=== PATIENT | female | born 1995 | race American Indian/Alaskan Native ===

== ENCOUNTER 2017-09-19 12:33 | Emergency (ER) | payer OTHER ==
[2017-09-19 13:29] LABS: Urine Blood TRACE (NEG); Urine Glucose NEGATIVE (NEG); Urine Protein NEGATIVE (NEG); Urine pH 5.5 (5.0-7.0)
[2017-09-19] MEDS ORDERED: DEXAMETHASONE 10 MG/ML VIAL ONE (14:07)
[2017-09-19] MEDS ORDERED: KETOROLAC 30 MG/ML INJ ONE (14:08)
[2017-09-19] MEDS ORDERED: ONDANSETRON 4 MG/2 ML VIAL ONE (14:08)
[2017-09-19] MEDS ORDERED: METHOCARBAMOL 1,000 MG/10 ML VIAL IV ONE (14:08)
[2017-09-19] MEDS ORDERED: FENTANYL CITR 100 MCG/2 ML ONE (14:08)
[2017-09-19] MEDS ORDERED: NA CHLORIDE 0.9% 100 ML IV ONE (14:09)
--- NOTE | 2017-09-19 14:22 | RAD REPORT ---
EXAM DESCRIPTION: CT - Spine Lumbar Wo Con - 09/19/2017 2:10 pm CLINICAL HISTORY: Radiculopathy. Pain;Numbness/tingling;Radiculopathy COMPARISON: No comparisons TECHNIQUE: Axial noncontrast CT imaging of the lumbar spine was performed with coronal and sagittal re-formatted images. All CT scans are performed using dose optimization technique as appropriate and may include automated exposure control or mA/KV adjustment according to patient size. FINDINGS: No acute lumbar spine fracture seen. No aggressive marrow pattern or malalignment. Paraspinal tissues are normal in thickness. No paraspinal abscess or hematoma seen. Multilevel posterior laminectomies are present spanning L2-4. There is evidence of a left sided disc protrusion measuring 5-6 mm at the L5-S1 level. IMPRESSION: No acute lumbar spine finding. Multilevel posterior laminectomy spanning L2-4. Left paracentral/foraminal disc protrusion suspected at L5-S1 likely attenuating the left lateral rec ess and narrowing the left exit foramen. Followup nonemergent MR imaging of lumbar spine could be obt ained for further workup.
--- NOTE | 2017-09-19 14:58 | ER ---
Nurse's Notes [facility] Name: Audrey Fairchild Age: 22 yrs Sex: Female : 1995 Arrival Date: 09/19/2017 Time: 12:36 Bed 30 Private MD: None, None Diagnosis: Low back pain Presentation: 09/19 12:51 Presenting complaint: Patient states: i started having low back pains since Sunday, L hj and R lower back pains; pain moves to the L leg; reports tingling on both legs; pain is 10/10; hx of 3 back surgeries; denies hx of kidney stones;. Transition of care: patient was not received from another setting of care. Onset of symptoms was September 19, 2017. Risk Assessment: Do you want to hurt yourself or someone else? Patient reports no desire to harm self or others. Initial Sepsis Screen: Does the patient meet any 2 criteria? No. Patient's initial sepsis screen is negative. Does the patient have a suspected source of infection? No. Patient's initial sepsis screen is negative. Care prior to arrival: None. 12:51 Method Of Arrival: Ambulatory 12:51 Acuity: CAR 4 Triage Assessment: 12:54 General: Appears in no apparent distress. uncomfortable, Behavior is calm, cooperative, hj appropriate for age. Pain: Complains of pain in left low back and right low back Pain radiates to right leg and left leg Pain currently is 10 out of 10 on a pain scale. Musculoskeletal: Circulation, motion, and sensation intact. Capillary refill < 3 seconds, Range of motion: intact in all extremities. 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 - Social history:: Smoking status: Patient/guardian denies using tobacco, Patient uses alcohol, occasionally. - Ebola Screening: : Patient negative for fever greater than or equal to 101.5 degrees Fahrenheit, and additional compatible Ebola Virus Disease symptoms Patient denies exposure to infectious person Patient denies travel to an Ebola-affected area in the 21 days before illness onset. Screenin:55 Abuse screen: Denies threats or abuse. Denies injuries from another. Nutritional hj screening: No deficits noted. Tuberculosis screening: No symptoms or risk factors identified. Fall Risk None identified. Assessment: 13:15 General: Appears uncomfortable, well groomed, well developed, well nourished, Behavior tl3 is calm, cooperative, appropriate for age. Pain: Complains of pain in left low back Pain currently is 10 out of 10 on a pain scale. Neuro: Level of Consciousness is awake, alert, obeys commands, Oriented to person, place, time, situation, Appropriate for age. Cardiovascular: Patient's skin is warm and dry. Respiratory: Airway is patent Respiratory effort is even, unlabored, Respiratory pattern is regular, symmetrical. GI: No signs and/or symptoms were reported involving the gastrointestinal system. : Urine is clear, Reports has CVA tenderness on the left side. EENT: No signs and/or symptoms were reported regarding the EENT system. Derm: No signs and/or symptoms reported regarding the dermatologic system. Musculoskeletal: Reports pain in right low back and left low back since Sunday. pt has history of three back surgeries, three herniated disks. Injury Description: no direct injury reported, did have 12 day standing on concrete floor. 14:11 Reassessment: No changes from previously documented assessment. Patient and/or family tl3 updated on plan of care and expected duration. Pain level reassessed. Patient is alert, oriented x 3, equal unlabored respirations, skin warm/dry/pink. pt in radiololgy. 15:13 Reassessment: No changes from previously documented assessment. Patient and/or family tl3 updated on plan of care and expected duration. Pain level reassessed. Patient is alert, oriented x 3, equal unlabored respirations, skin warm/dry/pink. pt Robaxin infusion continuing, will discharge after complete. 15:53 Reassessment: Patient appears in no apparent distress at this time. No changes from tl3 previously documented assessment. Patient and/or family updated on plan of care and expected duration. Pain level reassessed. Patient is alert, oriented x 3, equal unlabored respirations, skin warm/dry/pink. Vital Signs: 12:55 BP 119 / 83; Pulse 62; Resp 18; Temp 98.2(TE); Pulse Ox 100% on R/A; Weight 94.35 kg; hj Height 5 ft. 6 in. (167.64 cm); Pain 10/10; 13:15 BP 122 / 81; Pulse 70; Resp 18; Pulse Ox 100% on R/A; tl3 14:44 BP 121 / 77; Pulse 52; Resp 18; Pulse Ox 100% on R/A; tl3 14:44 Pain 5/10; tl3 15:13 BP 126 / 70; Pulse 53; Resp 16; Pulse Ox 100% ; tl3 15:53 BP 118 / 73; Pulse 68; Resp 18; Pulse Ox 100% ; tl3 12:55 Body Mass Index 33.57 (94.35 kg, 167.64 cm) hj ED Course: 12:36 Patient arrived in ED. mr 12:37 None, None is Private Physician. mr 12:53 Triage completed. hj 12:55 Arm band placed on left wrist. hj 12:58 Douglas Mark PA is PHCP. jr8 12:58 Wing Gama MD is Attending Physician. jr8 13:15 Coco Morales, KAYLYNN is Primary Nurse. tl3 13:15 Awaiting ED provider evaluation. tl3 13:15 Patient has correct armband on for positive identification. Bed in low position. Call tl3 light in reach. Adult w/ patient. Pulse ox on. NIBP on. Door closed. Warm blanket given. 13:15 No provider procedures requiring assistance completed. tl3 14:[address] via stretcher. sw 14:10 CT completed. Patient tolerated procedure well. Patient moved back from CT. sw 14:10 CT Lumbar Spine Wo Con In Process Unspecified. EDMS 14:36 Inserted saline lock: 20 gauge in right antecubital area, using aseptic technique. tl3 15:53 IV discontinued, intact, bleeding controlled, No redness/swelling at site. Pressure tl3 dressing applied. Administered Medications: 14:34 Drug: fentaNYL (PF) 50 mcg Route: IVP; Infused Over: 3 mins; Site: right antecubital; tl3 15:15 Follow up: Response: No adverse reaction tl3 15:15 Follow up: Response: Pain is decreased tl3 14:34 Drug: Zofran 4 mg Route: IVP; Infused Over: 2 mins; Site: right antecubital; tl3 15:15 Follow up: Response: No adverse reaction tl3 14:35 Drug: Decadron - Dexamethasone 10 mg Route: IVP; Infused Over: 2 mins; Site: right tl3 antecubital; 15:15 Follow up: Response: No adverse reaction tl3 14:35 Drug: Robaxin 1 grams Route: IVPB; Infused Over: 1 hrs; Site: right antecubital; tl3 Delivery: Primary tubing; 15:16 Follow up: IV Intake: 100ml tl3 15:54 Follow up: IV Status: Completed infusion tl3 14:35 Drug: TORadol 30 mg Route: IVP; Site: right antecubital; tl3 15:15 Follow up: Response: No adverse reaction tl3 Intake: 15:16 IV: 100ml; Total: 100ml. tl3 Outcome: 14:57 Discharge ordered by . gracia 15:53 Discharged to home ambulatory. tl3 15:53 Condition: stable 15:53 Discharge instructions given to patient, Instructed on discharge instructions, follow up and referral plans. Demonstrated understanding of instructions, follow-up care, medications. 15:55 Patient left the ED. tl3 Signatures: Dispatcher [employer] [facility] Guillermina Pendleton Josh, CAIT CHAVIRA jriMkayla Turner Henry, RN RN Coco Martinez RN RN tl3 Corrections: (The following items were deleted from the chart) 14:36 14:36 Inserted saline lock: 20 gauge in right antecubital area, using aseptic tl3 technique. Blood collected. tl3 15:14 15:13 Reassessment: pt Robaxin infusion continuing, will discharge after complete tl3 tl3
--- NOTE | 2017-09-19 14:58 | EDPHYS ---
Physician Documentation [facility] Name: Audrey Fairchild Age: 22 yrs Sex: Female : 1995 Arrival Date: 09/19/2017 Time: 12:36 Bed 30 Private MD: None, None ED Physician Wing Gama HPI: 09/19 14:18 This 22 yrs old Other Female presents to ER via Ambulatory with complaints of Back Pain.jr8 14:18 The patient presents with pain that is acute. The symptoms are located in the low back. jr8 Onset: The symptoms/episode began/occurred gradually, 2 day(s) ago. The pain radiates. Associated signs and symptoms: The patient has no apparent associated signs or symptoms. The problem was sustained from unknown cause. Modifying factors: The patient symptoms are alleviated by nothing, the patient symptoms are aggravated by any movement. Severity of symptoms: At their worst the symptoms were moderate, in the emergency department the symptoms are unchanged. The patient has experienced a previous episode. The patient has not recently seen a physician. History of chronic low back pain and previous surgeries from low back problems. Stated that she normally does very well. Had been at a recent class where she was having to stand and sit on hard ground. Stated that she thinks she may have aggravated her back that way but denies recent falls. Denies urine complaints, abdominal pain, n/v/d, or fevers . 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 - Social history:: Smoking status: Patient/guardian denies using tobacco, Patient uses alcohol, occasionally. - Ebola Screening: : Patient negative for fever greater than or equal to 101.5 degrees Fahrenheit, and additional compatible Ebola Virus Disease symptoms Patient denies exposure to infectious person Patient denies travel to an Ebola-affected area in the 21 days before illness onset. ROS: 14:18 Eyes: Negative for injury, pain, redness, and discharge, ENT: Negative for injury, jr8 pain, and discharge, Neck: Negative for injury, pain, and swelling, Cardiovascular: Negative for chest pain, palpitations, and edema, Respiratory: Negative for shortness of breath, cough, wheezing, and pleuritic chest pain, Abdomen/GI: Negative for abdominal pain, nausea, vomiting, diarrhea, and constipation, MS/Extremity: Negative for injury and deformity, Skin: Negative for injury, rash, and discoloration, Neuro: Negative for headache, weakness, numbness, tingling, and seizure. 14:18 Back: Positive for pain at rest, pain with movement, radiated pain. Exam: 14:18 Eyes: Pupils equal round and reactive to light, extra-ocular motions intact. Lids and jr8 lashes normal. Conjunctiva and sclera are non-icteric and not injected. Cornea within normal limits. Periorbital areas with no swelling, redness, or edema. ENT: Nares patent. No nasal discharge, no septal abnormalities noted. Tympanic membranes are normal and external auditory canals are clear. Oropharynx with no redness, swelling, or masses, exudates, or evidence of obstruction, uvula midline. Mucous membranes moist. Neck: Trachea midline, no thyromegaly or masses palpated, and no cervical lymphadenopathy. Supple, full range of motion without nuchal rigidity, or vertebral point tenderness. No Meningismus. Cardiovascular: Regular rate and rhythm with a normal S1 and S2. No gallops, murmurs, or rubs. Normal PMI, no JVD. No pulse deficits. Respiratory: Lungs have equal breath sounds bilaterally, clear to auscultation and percussion. No rales, rhonchi or wheezes noted. No increased work of breathing, no retractions or nasal flaring. Abdomen/GI: Soft, non-tender, with normal bowel sounds. No distension or tympany. No guarding or rebound. No evidence of tenderness throughout. Skin: Warm, dry with normal turgor. Normal color with no rashes, no lesions, and no evidence of cellulitis. MS/ Extremity: Pulses equal, no cyanosis. Neurovascular intact. Full, normal range of motion. Neuro: Awake and alert, GCS 15, oriented to person, place, time, and situation. Cranial nerves II-XII grossly intact. Motor strength 5/5 in all extremities. Sensory grossly intact. Cerebellar exam normal. Normal gait. 14:18 Back: pain, that is moderate, of the low back area, ROM is painful, normal spinal alignment noted, CVA tenderness, is absent, muscle spasm, is appreciated in the left low back and right low back, Straight leg raises: of both lower extremities does not illicit pain. Vital Signs: 12:55 BP 119 / 83; Pulse 62; Resp 18; Temp 98.2(TE); Pulse Ox 100% on R/A; Weight 94.35 kg; hj Height 5 ft. 6 in. (167.64 cm); Pain 10/10; 13:15 BP 122 / 81; Pulse 70; Resp 18; Pulse Ox 100% on R/A; tl3 14:44 BP 121 / 77; Pulse 52; Resp 18; Pulse Ox 100% on R/A; tl3 14:44 Pain 5/10; tl3 15:13 BP 126 / 70; Pulse 53; Resp 16; Pulse Ox 100% ; tl3 15:53 BP 118 / 73; Pulse 68; Resp 18; Pulse Ox 100% ; tl3 12:55 Body Mass Index 33.57 (94.35 kg, 167.64 cm) hj MDM: 12:58 Patient medically screened. jr8 14:56 Data reviewed: vital signs, nurses notes, radiologic studies, CT scan. Data jr8 interpreted: Pulse oximetry: on room air is 100 %. Interpretation: normal. Counseling: I had a detailed discussion with the patient and/or guardian regarding: the historical points, exam findings, and any diagnostic results supporting the discharge/admit diagnosis, radiology results, the need for outpatient follow up, a neurosurgeon, a orthopedic surgeon, to return to the emergency department if symptoms worsen or persist or if there are any questions or concerns that arise at home. Response to treatment: the patient's symptoms have markedly improved after treatment. 14:57 ED course: Discussed with patient that she should follow up for a non emergent MRI of jr8 lower spine again for some changes that was noted. No acute cord compression at this time. Patient feeling better. Will d/c home to follow up . 09/19 13:26 Order name: Urine Dipstick--Ancillary (enter results); Complete Time: 13:37 bd 09/19 13:26 Order name: Urine --Ancillary (enter results); Complete Time: 13:37 bd 09/19 13:38 Order name: CT Lumbar Spine Wo Con; Complete Time: 14:23 jr8 09/19 13:38 Order name: IV; Complete Time: 14:33 jr8 Administered Medications: 14:34 Drug: fentaNYL (PF) 50 mcg Route: IVP; Infused Over: 3 mins; Site: right antecubital; tl3 15:15 Follow up: Response: No adverse reaction tl3 15:15 Follow up: Response: Pain is decreased tl3 14:34 Drug: Zofran 4 mg Route: IVP; Infused Over: 2 mins; Site: right antecubital; tl3 15:15 Follow up: Response: No adverse reaction tl3 14:35 Drug: Decadron - Dexamethasone 10 mg Route: IVP; Infused Over: 2 mins; Site: right tl3 antecubital; 15:15 Follow up: Response: No adverse reaction tl3 14:35 Drug: Robaxin 1 grams Route: IVPB; Infused Over: 1 hrs; Site: right antecubital; tl3 Delivery: Primary tubing; 15:16 Follow up: IV Intake: 100ml tl3 15:54 Follow up: IV Status: Completed infusion tl3 14:35 Drug: TORadol 30 mg Route: IVP; Site: right antecubital; tl3 15:15 Follow up: Response: No adverse reaction tl3 Disposition: 16:35 Co-signature as Attending Physician, Wing Gama MD. rn Disposition: 09/19/17 14:57 Discharged to Home. Impression: Low back pain. - Condition is Stable. - Discharge Instructions: Back Pain, Adult, Musculoskeletal Pain, Back Exercises, [id number], Heat Therapy. - Medication Reconciliation Form, Thank You Letter, Antibiotic Education, Prescription Opioid Use form. - Follow up: Private Physician; When: 2 - 3 days; Reason: Recheck today's complaints, Continuance of care, Re-evaluation by your physician. - Problem is new. - Symptoms have improved. Signatures: Dispatcher [employer] EDMS Wing Gama MD MD rn Roszak, Josh, PA PA jr8 Efrain Fontanez RN RN hj Lowrey, Tammy, RN RN tl3 Corrections: (The following items were deleted from the chart) 15:55 14:57 09/19/2017 14:57 Discharged to Home. Impression: Low back pain. Condition is tl3 Stable. Forms are Medication Reconciliation Form, Thank You Letter, Antibiotic Education, Prescription Opioid Use. Follow up: Private Physician; When: 2 - 3 days; Reason: Recheck today's complaints, Continuance of care, Re-evaluation by your physician. Problem is new. Symptoms have improved. jr8
[2017-09-19 15:59] VITALS: TEMP 98.2; O2SAT 100
[2017-09-19 16:03] VITALS: BP 118/73
== END 2017-09-19 15:55 | disposition home or self-care (01) ==
LOC: ER 12:33
DX: M54.5 Low back pain (principal); Z91.048 Other nonmedicinal substance allergy status
CPT/HCPCS: 72131; 81003; 81025; 96365; 96375; 99284; J1100; J2405; J2800; J3010

== ENCOUNTER 2020-08-16 10:06 | Emergency (ER) | payer OTHER ==
--- OUTSIDE RECORDS SUMMARY | 2020-08-16 11:17 | XMS REPORT | Continuity of Care Document ---
:1995 Author Organization [facility] t Address [address] [place] [address] Care Team Providers Name Role Phone Gabby Reynolds Attending Clinician Payers Payer Name Policy Type Policy Number Effective Date Expiration Date S ource Problems This patient has no known problems. Allergies, Adverse Reactions, Alerts Allergy Allergy Status Severity Reaction(s) Onset Inactive Treating Comm ents Source Name Type Date Date Clinician No Known DA Active U 2018-02 [facility] [place] BEE DA Active SV [facility] [place] Medications This patient has no known medications. Procedures This patient has no known procedures. Encounters Start End Encounter Admission Attending Care Care Encounter Source Date/Time Date/Time Type Type Clinicians Facility Department ID 2019-04-09 2019-04-09 Emergency Lizandro Navarro [facility] [id number] 20:17:10 22:40:00 Gabby Stevens [id number] [place] [id number] [place] [id number] Results Test Description Test Time Test Comments Results Result [facility] e Comments - US TRANSVAGINAL 2018-12-08 Patient Name: W/PELVIS 17:37:00 GM BRAND Unit No: [id number] EXAMS: CPT CODE: [id number] US TRANSVAGINAL W/PELVIS [id number] EXAMINATION: Pelvic ultrasound 12/08/2018. CLINICAL HISTORY: Vaginal bleeding since placement of IUD. COMPARISON: Pelvic ultrasound 03/30/2016. FINDINGS: Transabdominal and transvaginal pelvic ultrasound was performed using grayscale, color Doppler, and spectral analysis. The uterus measures 96 x 45 x 47 mm. The endometrium measures 5 mm in AP diameter. The IUD is evident in appropriate position. No uterine leiomyomata are evident. The ovaries are within normal limits in size and sonographic appearance. The right ovary measures 32 x 18 x 26 mm and the left ovary measures 23 x 23 x 28 mm. Both ovaries demonstrate flow on Doppler evaluation. No free fluid is present in the pelvis. IMPRESSION: 1. IUD in place in appropriate position. 2. No sonographic abnormalities in the pelvis. at 1732 Reported and signed by: Roma Golden MD CC: Neto Hylton MD Technologist: Barbie Soler [facility] Probe: [id number] Trnscrbd D/ (5689) t.SDR.[facility] Orig Print D/T: S: 12/08/2018 (6048) [facility] NAME: GM BRAND Radiology Department PHYS: Neto Hutton MD [address] : 1995 AGE: 23 SEX: F [place] [address] LOC: .ERS PHONE #: [phone] EXAM DATE: 12/08/2018 STATUS: REG ER FAX #: [phone] RAD NO: Page 1 Signed Report Patient Name: SHABANA BRANDREENA Mcguire Unit No: [id number] EXAMS: CPT CODE: [id number] US TRANSVAGINAL W/PELVIS 11423 <Continued> [facility] NAME: GM BRAND Radiology Department PHYS: Neto Hutton MD [address] : 1995 AGE: 23 SEX: F [place] [address] LOC: F.ERS PHONE #: [phone] EXAM DATE: 12/08/2018 STATUS: REG ER FAX #: [phone] RAD NO: Page 2 Signed Report - US PELVIS 2018-12-08 Patient Name: JODY 17:37:00 GM BRAND Unit No: [id number] EXAMS: CPT CODE: [id number] US PELVIS COMPLETE [id number] EXAMINATION: Pelvic ultrasound 12/08/2018. CLINICAL HISTORY: Vaginal bleeding since placement of IUD. COMPARISON: Pelvic ultrasound 03/30/2016. FINDINGS: Transabdominal and transvaginal pelvic ultrasound was performed using grayscale, color Doppler, and spectral analysis. The uterus measures 96 x 45 x 47 mm. The endometrium measures 5 mm in AP diameter. The IUD is evident in appropriate position. No uterine leiomyomata are evident. The ovaries are within normal limits in size and sonographic appearance. The right ovary measures 32 x 18 x 26 mm and the left ovary measures 23 x 23 x 28 mm. Both ovaries demonstrate flow on Doppler evaluation. No free fluid is present in the pelvis. IMPRESSION: 1. IUD in place in appropriate position. 2. No sonographic abnormalities in the pelvis. at 1737 Reported and signed by: Roma Golden MD CC: Neto Hylton MD Technologist: Barbie Soler RDMS Probe: Trnscrbd D/ (1737) t.SDR.[facility] Orig Print D/T: S: 12/08/2018 (4589) [facility] NAME: GM BRAND Radiology Department PHYS: REJI Neto Hylton MD [address] : 1995 AGE: 23 SEX: F [place], [place] [address] LOC: ANGELITA PHONE #: [phone] EXAM DATE: 12/08/2018 STATUS: REG ER FAX #: [phone] RAD NO: Page 1 Signed Report Patient Name: GM BRAND Unit No: [id number] EXAMS: CPT CODE: [id number] US PELVIS COMPLETE 70697 <Continued> [facility] NAME: GM BRAND Radiology Department PHYS: Neto Hutton MD [address] : 1995 AGE: 23 SEX: F [place], [place] [address] LOC: ANGELITA PHONE #: [phone] EXAM DATE: 12/08/2018 STATUS: REG ER FAX #: [phone] RAD NO: Page 2 Signed Report UA RFLX MICR CULT IF INDICATED 2018-12-08 16:26:00 Test Item Value Reference Range Interpretation Comme nts UA COLOR (test code = COLU) YELLOW YELLOW UA APPEARANCE (test code = APPU) Slightly-Cloudy CLEAR UA GLUCOSE DIPSTICK (test code = DGLUU) NEGATIVE NEG UA BILIRUBIN DIPSTICK (test code = BILU) NEGATIVE NEG UA KETONE DIPSTICK (test code = KETU) NEGATIVE NEG UA SPECIFIC GRAVITY (test code = SGU) 1.031 1.001-1.035 N UA BLOOD DIPSTICK (test code = ADRIANA) 3+ NEG A UA PH DIPSTICK (test code = CARL) 7.0 5-9 UA PROTEIN DIPSTICK (test code = PROU) 2+ NEG A UA UROBILINIOGEN DIPSTICK (test code = URO) 4.0 mg/dL NEG A UA NITRITE DIPSTICK (test code = LUNA) NEG NEG UA LEUKOCYTE ESTERASE DIPSTICK (test code = 2+ NEG A LEUU) UA WBC (test code = WBCU) TOO NUMEROUS TO CNT #/hpf NONE SEEN A UA RBC (test code = RBCU) 11-15 #/hpf NONE SEEN A UA EPITHELIAL CELLS (test code = EPIU) FEW #/HPF RARE-FEW UA BACTERIA (test code = BACU) FEW /HPF RARE-FEW UA MUCUS (test code = MUCU) 4+ NONE SEEN Indication for culture: Dysuria/FrequencyUR HCG [id number] 16:26:00 Test Item Value Reference Range Interpretation Comments UR HCG QUAL (test NEGATIVE 1. Very di lute urine code = HCGQLU) specimens, as indicated by a lowspecific g ravity, may not contain rep resentative levels ofhCG. 2 . False negative result s may occur when the levels of hCGare below the sensi tivity level of the test. If is still suspec rosie, a first morningurine sp ecimen should be colle cted 48 hours later and tested. Indication for culture: Dysuria/FrequencyUA RFLX MICR CULT IF INDICATED 2018-12-08 16:23:00 Test Item Value Reference Range Interpretation Comments UA COLOR (test code = COLU) YELLOW UA APPEARANCE (test code = APPU) CLEAR UA GLUCOSE DIPSTICK (test code = NEGATIVE DGLUU) UA BILIRUBIN DIPSTICK (test code = NEGATIVE BILU) UA KETONE DIPSTICK (test code = KETU) NEGATIVE UA SPECIFIC GRAVITY (test code = SGU) 1.001-1.035 UA BLOOD DIPSTICK (test code = ADRIANA) NEGATIVE UA PH DIPSTICK (test code = CARL) 5-9 UA PROTEIN DIPSTICK (test code = PROU) NEGATIVE UA UROBILINIOGEN DIPSTICK (test code = mg/dL NEG URO) UA NITRITE DIPSTICK (test code = LUNA) NEGATIVE UA LEUKOCYTE ESTERASE DIPSTICK (test NEG code = LEUU) UA WBC (test code = WBCU) #/hpf NONE SEEN UA EPITHELIAL CELLS (test code = EPIU) #/HPF RARE-FEW Indication for culture: Dysuria/FrequencyUR HCG [id number] 16:23:00 Test Item Value Reference Range Interpretation Comments UR HCG QUAL (test NEGATIVE 1. Very di lute urine code = HCGQLU) specimens, as indicated by a lowspecific g ravity, may not contain rep resentative levels ofhCG. 2 . False negative result s may occur when the levels of hCGare below the sensi tivity level of the test. If is still suspec rosie, a first morningurine sp ecimen should be colle cted 48 hours later and tested. Indication for culture: Dysuria/FrequencyCBC W/AUTO [id number] 16:20:00 Test Item Value Reference Range Interpretation Comments WHITE BLOOD CELL (test code = WBC) 11.5 K/mm3 6.6-12.1 N RED BLOOD CELL (test code = RBC) 4.48 M/mm3 3.45-5.01 N HEMOGLOBIN (test code = HGB) 13.4 g/dL 10.7-13.9 N HEMATOCRIT (test code = HCT) 41.1 % 32.1-42.1 N MEAN CELL VOLUME (test code = MCV) 92 fL 84.1-94.8 N MEAN CELL HGB (test code = MCH) 29.9 pg 27-35 N MEAN CELL HGB CONCETRATION (test 32.6 gm/dL 32.2-34.1 N code = MCHC) RED CELL DISTRIBUTION WIDTH (test 13.3 % 12.4-16.5 N code = RDW) PLATELET COUNT (test code = PLT) 305 K/mm3 133-385 N IMMATURE PLATELET FRACTION (test 0.0 % 0.0-10.8 N code = IPF) MEAN PLATELET VOLUME (test code = 10.4 fl 9.1-12.7 N MPV) NEUTROPHIL % (test code = NT%) 65.2 % 56.5-79.4 N LYMPHOCYTE % (test code = LY%) 21.6 % 14.3-34.3 N MONOCYTE % (test code = MO%) 6.9 % 5.1-10.4 N EOSINOPHIL % (test code = EO%) 5.2 % 0.1-3.0 H BASOPHIL % (test code = BA%) 0.8 % 0.1-1.0 N NEUTROPHIL # (test code = NT#) 7.5 K/mm3 LYMPHOCYTE # (test code = LY#) 2.5 K/mm3 MONOCYTE # (test code = MO#) 0.8 K/mm3 EOSINOPHIL # (test code = EO#) 0.60 K/mm3 BASOPHIL # (test code = BA#) 0.1 K/mm3 RBC MORPHOLOGY REQUIRED (test code NORMAL NORMAL = RBCM) PLATELET MORPHOLOGY REQUIRED (test NORMAL NORMAL code = PLTMR)
[2020-08-16] MEDS ORDERED: NA CHLORIDE 0.9% 500 ML ONE (12:03)
[2020-08-16] MEDS ORDERED: ONDANSETRON 4 MG/2 ML VIAL ONE (12:03)
[2020-08-16] MEDS ORDERED: MORPHINE 2 MG/ML SYR ONE (12:03)
[2020-08-16] MEDS ORDERED: dexAMETHasone 10 MG/ML VIAL ONE (12:13)
[2020-08-16] MEDS ORDERED: DIAZEPAM 5 MG TABLET ONE (12:13)
[2020-08-16] MEDS ORDERED: KETOROLAC 30 MG/ML INJ ONE (12:13)
--- NOTE | 2020-08-16 12:15 | RAD REPORT ---
EXAM DESCRIPTION: CTSpine Lumbar Wo Con08/16/2020 12:02 pm CLINICAL HISTORY: Radiculopathy/back pain COMPARISON: 2018 TECHNIQUE: Computed axial tomography lumbar spine was obtained with coronal and sagittal reconstruct ion. All CT scans are performed using dose optimization technique as appropriate and may include automated exposure control or mA/KV adjustment according to patient size. FINDINGS: Postsurgical changes involve L2 through L4. No fracture or dislocation Small left posterolateral structure L5-S1. IMPRESSION: Small left posterolateral structure L5-S1 may represent a disc herniation or epidural fi brosis. If clinically further evaluation with an MRI with contrast could be obtained to help differen tiate between the two.
--- NOTE | 2020-08-16 12:44 | ER ---
Nurse's Notes [facility] Name: Audrey Fairchild Age: 25 yrs Sex: Female : 1995 Arrival Date: 08/16/2020 Time: 10:09 Bed 20 Private MD: Diagnosis: Low back pain;Sciatica Presentation: 08/16 10:26 Chief complaint: Patient states: Fell last week, reports back pain that's getting jl7 worse, had emergency back surgery in 2011 due to herniated disc and incontinence. Coronavirus screen: Client denies travel out of the [place] in the last 14 days. At this time, the client does not indicate any symptoms associated with coronavirus-19. Ebola Screen: No symptoms or risks identified at this time. Initial Sepsis Screen: Does the patient meet any 2 criteria? No. Patient's initial sepsis screen is negative. Does the patient have a suspected source of infection? No. Patient's initial sepsis screen is negative. Risk Assessment: Do you want to hurt yourself or someone else? Patient reports no desire to harm self or others. Onset of symptoms is unknown. Care prior to arrival: None. 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 - Social history:: Smoking status: Patient denies any tobacco usage or history of. - Family history:: not pertinent. Screenin:40 Abuse screen: Denies threats or abuse. Nutritional screening: No deficits noted. vg1 Tuberculosis screening: No symptoms or risk factors identified. Fall Risk No fall in past 12 months (0 pts). No secondary diagnosis (0 pts). IV access (20 points). Ambulatory Aid- None/Bed Rest/Nurse Assist (0 pts). Gait- Normal/Bed Rest/Wheelchair (0 pts) Mental Status- Oriented to own ability (0 pts). Total Ramirez Fall Scale indicates No Risk (0-24 pts). Assessment: 11:40 General: Appears in no apparent distress. uncomfortable, Behavior is calm, cooperative. vg1 Pain: Complains of pain in Left lower back and left leg Pain currently is 7 out of 10 on a pain scale. Noted to be grimacing. Neuro: Level of Consciousness is awake, alert, obeys commands, Oriented to person, place, time, situation. Cardiovascular: Patient's skin is warm and dry. Respiratory: Airway is patent Respiratory effort is even, unlabored. GI: No signs and/or symptoms were reported involving the gastrointestinal system. : No signs and/or symptoms were reported regarding the genitourinary system. EENT: No signs and/or symptoms were reported regarding the EENT system. Derm: Skin is intact, is healthy with good turgor. Musculoskeletal: Circulation, motion, and sensation intact. Vital Signs: 10:26 BP 110 / 76; Pulse 83; Resp 17; Temp 98.7; Pulse Ox 99% on R/A; Weight 96.62 kg; Height jl7 5 ft. 6 in. (167.64 cm); Pain 10/10; 11:40 BP 116 / 74; Pulse 55; Resp 14; Pulse Ox 99% on R/A; vg1 10:26 Body Mass Index 34.38 (96.62 kg, 167.64 cm) jl7 ED Course: 10:09 Patient arrived in ED. rg4 10:30 Triage completed. jl7 10:30 Arm band placed on right wrist. jl7 11:35 Mark Davis MD is Attending Physician. [facility] 11:39 Paulette Shrestha, RN is Primary Nurse. vg1 11:40 Patient has correct armband on for positive identification. Bed in low position. Call vg1 light in reach. Side rails up X 1. Adult w/ patient. 12:02 CT Lumbar Spine Wo Con In Process Unspecified. EDMS 12:35 Inserted saline lock: 20 gauge in right antecubital area, using aseptic technique. dh4 Blood collected. 14:12 No provider procedures requiring assistance completed. IV discontinued, intact, iw bleeding controlled, No redness/swelling at site. Pressure dressing applied. Administered Medications: 12:33 Drug: Valium (diazepam) 5 mg Route: PO; vg1 14:28 Follow up: Response: No adverse reaction vg1 12:34 Drug: NS 0.9% 500 ml Route: IV; Rate: bolus; Site: right antecubital; vg1 13:04 Follow up: IV Status: Completed infusion; IV Intake: 500ml vg1 12:34 Drug: Zofran (Ondansetron) 4 mg Route: IVP; Site: right antecubital; vg1 14:28 Follow up: Response: No adverse reaction vg1 12:36 Drug: Ketorolac 30 mg Route: IVP; Site: right antecubital; vg1 14:28 Follow up: Response: No adverse reaction vg1 12:38 Drug: Decadron - Dexamethasone 10 mg Route: IVP; Site: right antecubital; vg1 14:28 Follow up: Response: No adverse reaction vg1 12:40 Drug: morphine 2 mg Route: IVP; Site: right antecubital; vg1 14:28 Follow up: Response: No adverse reaction; Pain is decreased vg1 Intake: 13:04 IV: 500ml; Total: 500ml. vg1 Outcome: 12:44 Discharge ordered by MD. rodarte 14:19 Discharged to home ambulatory, with family. iw 14:19 Condition: good 14:19 Discharge instructions given to patient, family, Instructed on discharge instructions, follow up and referral plans. medication usage, Demonstrated understanding of instructions, follow-up care, medications, Prescriptions given X 4. 14:20 Patient left the ED. iw Signatures: Dispatcher [employer] Mark Oh MD MD cha Williams, Irene, RN Suly Amaral rg4 Sheldon Nowak RN RN jl7 Jose Carlos Rod [facility] Paulette Shrestha RN RN vg1
--- NOTE | 2020-08-16 12:44 | EDPHYS ---
Physician Documentation [facility] Name: Audrey Fairchild Age: 25 yrs Sex: Female : 1995 Arrival Date: 08/16/2020 Time: 10:09 Bed 20 Private MD: HELEN Physician Mark Davis HPI: 08/16 11:52 This 25 yrs old Other Female presents to ER via Ambulatory with complaints of Back Pain.cayden 11:52 The patient presents with pain that is acute, and decreased range of motion, and an cayden injury. The symptoms are located in the low back. Onset: The symptoms/episode began/occurred 1.5 week(s) ago. The pain does not radiate. Associated signs and symptoms: The patient has no apparent associated signs or symptoms. The problem was sustained during a fall. Modifying factors: The patient symptoms are alleviated by nothing, the patient symptoms are aggravated by any movement. Severity of symptoms: At their worst the symptoms were mild, in the emergency department the symptoms are unchanged. The patient has not experienced similar symptoms in the past. 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 - Social history:: Smoking status: Patient denies any tobacco usage or history of. - Family history:: not pertinent. ROS: 11:52 Constitutional: Negative for fever, chills, and weight loss, Eyes: Negative for injury, cayden pain, redness, and discharge, ENT: Negative for injury, pain, and discharge, Neck: Negative for injury, pain, and swelling, Cardiovascular: Negative for chest pain, palpitations, and edema, Respiratory: Negative for shortness of breath, cough, wheezing, and pleuritic chest pain, Abdomen/GI: Negative for abdominal pain, nausea, vomiting, diarrhea, and constipation, : Negative for injury, bleeding, discharge, and swelling, MS/Extremity: Negative for injury and deformity, Skin: Negative for injury, rash, and discoloration, Neuro: Negative for headache, weakness, numbness, tingling, and seizure, Psych: Negative for depression, anxiety, suicide ideation, homicidal ideation, and hallucinations, Allergy/Immunology: Negative for hives, rash, and allergies, Endocrine: Negative for neck swelling, polydipsia, polyuria, polyphagia, and marked weight changes, Hematologic/Lymphatic: Negative for swollen nodes, abnormal bleeding, and unusual bruising. 11:52 Back: Positive for decreased range of motion, pain at rest, pain with movement, of the lumbar area. Exam: 11:53 Constitutional: This is a well developed, well nourished patient who is awake, alert, cayedn and in no acute distress. Head/Face: Normocephalic, atraumatic. Eyes: Pupils equal round and reactive to light, extra-ocular motions intact. Lids and lashes normal. Conjunctiva and sclera are non-icteric and not injected. Cornea within normal limits. Periorbital areas with no swelling, redness, or edema. ENT: Nares patent. No nasal discharge, no septal abnormalities noted. Tympanic membranes are normal and external auditory canals are clear. Oropharynx with no redness, swelling, or masses, exudates, or evidence of obstruction, uvula midline. Mucous membranes moist. Neck: Trachea midline, no thyromegaly or masses palpated, and no cervical lymphadenopathy. Supple, full range of motion without nuchal rigidity, or vertebral point tenderness. No Meningismus. Chest/axilla: Normal chest wall appearance and motion. Nontender with no deformity. No lesions are appreciated. Cardiovascular: Regular rate and rhythm with a normal S1 and S2. No gallops, murmurs, or rubs. Normal PMI, no JVD. No pulse deficits. Respiratory: Lungs have equal breath sounds bilaterally, clear to auscultation and percussion. No rales, rhonchi or wheezes noted. No increased work of breathing, no retractions or nasal flaring. Abdomen/GI: Soft, non-tender, with normal bowel sounds. No distension or tympany. No guarding or rebound. No evidence of tenderness throughout. Pelvic Exam: Normal external genitalia. Speculum exam with closed cervical os, no discharge or bleeding noted. Bimanual exam with normal adnexa, no adnexal or cervical motion tenderness. Normal uterus. Female : Normal external genitalia. Skin: Warm, dry with normal turgor. Normal color with no rashes, no lesions, and no evidence of cellulitis. MS/ Extremity: Pulses equal, no cyanosis. Neurovascular intact. Full, normal range of motion. Neuro: Awake and alert, GCS 15, oriented to person, place, time, and situation. Cranial nerves II-XII grossly intact. Motor strength 5/5 in all extremities. Sensory grossly intact. Cerebellar exam normal. Normal gait. Psych: Awake, alert, with orientation to person, place and time. Behavior, mood, and affect are within normal limits. 11:53 Back: pain, that is mild, ROM is painful, normal spinal alignment noted, CVA tenderness, is absent, muscle spasm, is appreciated in the lumbar area, left low back, left mid back, right mid back and right low back. Vital Signs: 10:26 BP 110 / 76; Pulse 83; Resp 17; Temp 98.7; Pulse Ox 99% on R/A; Weight 96.62 kg; Height jl7 5 ft. 6 in. (167.64 cm); Pain 10/10; 11:40 BP 116 / 74; Pulse 55; Resp 14; Pulse Ox 99% on R/A; vg1 10:26 Body Mass Index 34.38 (96.62 kg, 167.64 cm) jl7 MDM: 11:35 Patient medically screened. cayden 11:54 Differential diagnosis: chronic back pain, Fatigue Fracture Joint Injury Ligament cayden Injury Obesity Osteoporosis Scoliosis spinal injury, sprain, vertebral fracture. Data reviewed: vital signs, nurses notes, lab test result(s), radiologic studies, CT scan. 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 Test interpretation: by ED physician or midlevel provider:. Counseling: I had a detailed discussion with the patient and/or guardian regarding: the historical points, exam findings, and any diagnostic results supporting the discharge/admit diagnosis, lab results, radiology results. 08/16 11:38 Order name: CBC with Diff [facility] 08/16 11:38 Order name: Comprehensive Metabolic Panel; Complete Time: 13:21 cayden 08/16 11:38 Order name: CBC with Automated Diff; Complete Time: 13:21 EDMS 08/16 13:40 Order name: Urine Dipstick-Ancillary EDMS 08/16 13:53 Order name: Urine --Ancillary (enter results) bd 08/16 11:38 Order name: CT Lumbar Spine Wo Con; Complete Time: 12:42 cayden Administered Medications: 12:33 Drug: Valium (diazepam) 5 mg Route: PO; vg1 14:28 Follow up: Response: No adverse reaction vg1 12:34 Drug: NS 0.9% 500 ml Route: IV; Rate: bolus; Site: right antecubital; vg1 13:04 Follow up: IV Status: Completed infusion; IV Intake: 500ml vg1 12:34 Drug: Zofran (Ondansetron) 4 mg Route: IVP; Site: right antecubital; vg1 14:28 Follow up: Response: No adverse reaction vg1 12:36 Drug: Ketorolac 30 mg Route: IVP; Site: right antecubital; vg1 14:28 Follow up: Response: No adverse reaction vg1 12:38 Drug: Decadron - Dexamethasone 10 mg Route: IVP; Site: right antecubital; vg1 14:28 Follow up: Response: No adverse reaction vg1 12:40 Drug: morphine 2 mg Route: IVP; Site: right antecubital; vg1 14:28 Follow up: Response: No adverse reaction; Pain is decreased vg1 Disposition Summary: 08/16/20 12:44 Discharge Ordered Location: Home cayden Problem: new cayden Symptoms: have improved cayden Condition: Stable cayden Diagnosis - Low back pain cayden - Sciatica cayden Followup: cayden - With: Private Physician - When: 2 - 3 days - Reason: Recheck today's complaints, Continuance of care, Re-evaluation by your physician Discharge Instructions: - Discharge Summary Sheet cayden - Acute Back Pain, Adult cayden - Musculoskeletal Pain cayden - Sciatica cayden - Chronic Back Pain, [id number] cayden - Sciatica, [id number] cayden Forms: - Medication Reconciliation Form cayden - Thank You Letter cayden - Antibiotic Education cayden - Prescription Opioid Use cayden - Work release form iw Prescriptions: - acetaminophen-codeine 300-15 mg Oral tablet - take 2 tablet by ORAL route every 6 hours; 20 tablet; Refills: 0, Product cayden Selection Permitted - dexamethasone 2 mg Oral tablet - take 1 tablet by ORAL route 3 times per day; 12 tablet; Refills: 0, Product cayden Selection Permitted - Ibuprofen 600 mg Oral Tablet - take 1 tablet by ORAL route every 6 hours As needed take with food; 30 tablet; cayden Refills: 0, Product Selection Permitted - Cyclobenzaprine 5 mg Oral Tablet - take 1 tablet by ORAL route 3 times per day As needed; 15 tablet; Refills: 0, cayden Product Selection Permitted Signatures: Dispatcher [employer] Mark Oh, Sheldon Gentile MD, cha, RN RN jl7 Paulette Shrestha RN RN vg1
[2020-08-16 12:57] LABS: Basophils % 1.2 % (0-1.3); Hematocrit 40.1 % (36.0-45.0); Lymphocytes % 35.7 % (15.3-44.8); MPV 9.6 fL (7.6-11.3); RBC Red Blood Cell Count 4.41 M/uL (3.86-4.86)
[2020-08-16 13:17] LABS: Albumin 3.8 g/dL (3.4-5.0); Bilirubin Total 0.5 mg/dL (0.2-1.0); Protein, Total 7.4 g/dL (6.4-8.2)
[2020-08-16 13:41] LABS: Urine Blood 2+ (Negative); Urine Glucose Negative (Negative); Urine Protein Negative (Negative)
[2020-08-16 14:34] VITALS: TEMP 98.7; O2SAT 99
[2020-08-16 14:36] VITALS: BP 116/74
== END 2020-08-16 14:20 | disposition home or self-care (01) ==
LOC: ER 10:06
DX: M54.30 Sciatica, unspecified side (principal); Z91.048 Other nonmedicinal substance allergy status
CPT/HCPCS: 85025; 36415; 81025; 81003; 80053; 72131; 96375; 96374; 99284; J1100; J2270; J7040; J2405

== ENCOUNTER 2023-09-21 11:21 | Emergency (ER) | payer OTHER, SELFPAY ==
--- OUTSIDE RECORDS SUMMARY | 2023-09-21 11:24 | XMS REPORT | Continuity of Care Document ---
Author Name Unknown Address [address] [facility] [place] [address] [facility] [address] [facility] [address] [place] [address] Care Team Providers Care Harmonica Maker Name Role Phone PCP, PATIENT DOES NOT HAVE A Primary Care Physic desean Unavailable STACY MEMBRENO Attending Clinician Unavailable Gabino Abreu NP Attending Clinician [phone] GABINO ABREU Attending Clinician Unavailable CHARISSA ARMENDARIZ Attending Clinician Unavailable Charissa Abdalla Attending Clinician [phone] JONY SNELL Attending Clinician Unavailable Jony Henriquez Attending Clinician [phone] Doctor Unassigned, [place] Attending Clinician U JOSE Page Attending Clinician Unavail able CHRIS MCFARLANE Attending Clinician Unavailable Lizandro Reynolds Attending Clinician [phone] Payers Payer Name Policy Type Policy Number Effective Date Expirati on Date Source [facility] [id number] 2017 00:00:00 BC[employer] 2 [id number] 2022 00:00:00 Problems Condition Name Condition Details Condition Category Status Onset Date Resolution Date Last Treatment Date Treating Clinician Comments Source External hemorrhoid External hemorrhoid Disease Active 3-14 00:00: 00 [facility] Allergies, Adverse Reactions, Alerts Allergy Name Allergy Type Status Severity Reaction(s) Onset Date Inactive Date Treating Clinician Comments Source No Known Allergie s DA Active U 2018-02 0-27 00:00: 00 [facility] Iodine Propensi ty to adverse reaction s Active Hives 09-17 00:00: 00 [facility] Venom-Ho august Bee Propensi ty to adverse reaction s Active Anaphylaxis 09-17 00:00: 00 [facility] IODINE DRUG INGREDI Active Hives 09-17 00:00: 00 [facility] VENOM-HO AUGUST BEE DRUG INGREDI Active Anaphylaxis 09-17 00:00: 00 [facility] BEE STINGS DA Active SV 08-18 00:00: 00 [facility] Social History Social Habit Start Date Stop Date Quantity Comments Source Exposure to SARS-CoV-2 (event) Not sure [facility] Sex Assigned At 1995 00:00:00 1995 00:00:00 [facility] Smoking Status Start Date Stop Date Source Never smoked tobacco [facility] Medications Ordered Medication Name Filled Medication Name Start Date Stop Date Current Medication? Ordering Clinician Indication Dosage Frequency Signature (SIG) Comments Components Source amoxicillin 500 mg capsule 08-18 00:00: 00 08-29 04:59 :00 No [id number] 500mg Take 1 capsule by mouth in the morning and 1 capsule at noon and 1 capsule in the evening. Do all this for 10 days. [facility] cephALEXin (KEFLEX) 500 mg capsule 07-18 00:00: 00 07-26 04:59 :00 No [id number] 500mg Take 1 capsule by mouth 4 (four) times daily for 7 days. [facility] lidocaine 1% (XYLOCAINE) 10 mg/mL (1 %) injection 2 mL [id number] 00:30: 00 12-22 12:29 :00 No 2mL 2 mL, Infiltrati on, ONCE, 1 dose, On Sun12/21/20 at 1830, JACKSON [facility] cefTRIAXone (ROCEPHIN) injection 500 mg 2020-02 00:30: 00 12-21 23:35 :00 No 500mg 500 mg, Intramuscu lar, ONCE, 1 dose, On Sun12/21/20 at 1830, STAT
Re ason for Anti-Infec tive: Empiric Therapy for Suspected Infection< br>Empiric Therapy Site: Urine
D uration of therapy: 7 days [facility] metroNIDAZO LE (FLAGYL) tablet 500 mg 2020-02 00:30: 00 12-21 23:34 :00 No 500mg 500 mg, Oral, ONCE, 1 dose, On Sun12/21/20 at 1830, JACKSON
Re ason for Anti-Infec tive: Documented Infection< br>Documen rosie Infection Site: Urine
D uration of Therapy: Other (see Comments) [facility] doxycycline hyclate (Vibramycin ) capsule 100 mg 2020-02 00:30: 00 12-21 23:35 :00 No 100mg 100 mg, Oral, ONCE, 1 dose, On Sun12/21/20 at 1830, JACKSON
Re ason for Anti-Infec tive: Documented Infection< br>Documen rosie Infection Site: Urine
D uration of Therapy: Other (see Comments) [facility] ondansetron (ZOFRAN-ODT ) disintegrat ing tablet 4 mg 2020-02 00:30: 00 12-21 23:35 :00 No 4mg 4 mg, Oral, ONCE, 1 dose, On Sun12/21/20 at 1830, JACKSON [facility] metroNIDAZO LE 500 mg tablet 2020-02 00:00: 00 08-18 00:00 :00 No [id number] 500mg Take 1 tablet by mouth 2 (two) times daily. [facility] doxycycline hyclate 100 mg capsule 2020-02 00:00: 00 12-29 05:59 :00 No [id number] 100mg Take 1 capsule by mouth 2 (two) times daily for 7 days. [facility] hydrocortis one-pramovi ne rectal foam 3-14 00:00: 00 08-18 00:00 :00 No [id number] 1{appli cator} Insert 1 Applicator into rectum 2 (two) times daily. [facility] diphenhydrA MINE (BENADRYL ALLERGY) 25 mg tablet 09-17 00:00: 00 08-18 00:00 :00 No 50mg Take 2 Tabs by mouth every 6 (six) hours as needed for Allergies. [facility] famotidine (PEPCID) 20 mg tablet 09-17 00:00: 00 08-18 00:00 :00 No 20mg Take 1 Tab by mouth 2 (two) times daily. [facility] predniSONE (DELTASONE) 10 mg tablet 09-17 00:00: 00 08-18 00:00 :00 No Take as directed [facility] Vital Signs Vital Name Observation Time Observation Value Comments S ource Systolic blood pressure 2022-08-18 17:55:00 116 mm[Hg] [facility] Diastolic blood pressure 2022-08-18 17:55:00 75 mm[Hg] [facility] Heart rate 2022-08-18 17:55:00 56 /min [facility] Body temperature 2022-08-18 17:55:00 37 [facility] Respiratory rate 2022-08-18 17:55:00 16 /min [facility] Body height 2022-08-18 17:55:00 167.6 cm [facility] Body weight 2022-08-18 17:55:00 94.348 kg [facility] BMI 2022-08-18 17:55:00 33.57 kg/m2 [facility] Oxygen saturation in Arterial blood by Pulse oximetry 2022-08-18 17:55:00 100 /min [facility] Systolic blood pressure 2022-07-18 21:02:00 129 mm[Hg] [facility] Diastolic blood pressure 2022-07-18 21:02:00 74 mm[Hg] [facility] Heart rate 2022-07-18 21:02:00 66 /min [facility] Body temperature 2022-07-18 21:02:00 37.28 [facility] Respiratory rate 2022-07-18 21:02:00 16 /min [facility] Body height 2022-07-18 21:02:00 167.6 cm [facility] Body weight 2022-07-18 21:02:00 96.299 kg [facility] BMI 2022-07-18 21:02:00 34.27 kg/m2 [facility] Oxygen saturation in Arterial blood by Pulse oximetry 2022-07-18 21:02:00 100 /min [facility] Systolic blood pressure 2020-12-21 22:22:00 136 mm[Hg] [facility] Diastolic blood pressure 2020-12-21 22:22:00 80 mm[Hg] [facility] Heart rate 2020-12-21 22:22:00 68 /min [facility] Body temperature 2020-12-21 22:22:00 36.78 [facility] Respiratory rate 2020-12-21 22:22:00 22 /min [facility] Body weight 2020-12-21 22:22:00 87.544 kg [facility] BMI 2020-12-21 22:22:00 31.15 kg/m2 [facility] Oxygen saturation in Arterial blood by Pulse oximetry 2020-12-21 22:22:00 99 /min [facility] Procedures Procedure Date / Time Performed Performing Clinicia n Source ASSIGNMENT OF BENEFITS 2022-08-18 18:28:25 Docto r Unassigned, [place] [facility] ASSIGNMENT OF BENEFITS 2022-07-18 21:08:07 Docto r Unassigned, [place] [facility] NOTICE OF PRIVACY PRACTICES 2022-07-18 20:58:56 Doctor Unassigned, [place] [facility] CONSENT/REFUSAL FOR DIAGNOSIS AND TREATMENT 2022-07-18 20:57:41 Doctor Unassigned, [place] [facility] ASSIGNMENT OF BENEFITS 2020-12-21 22:44:49 Docto r Unassigned, [place] [facility] POCT TEST 2020-12-21 22:37:00 Jony Snell [facility] URINALYSIS 2020-12-21 22:34:00 Jony Snell [facility] CONSENT/REFUSAL FOR DIAGNOSIS AND TREATMENT 2020-12-21 22:09:10 Doctor Unassigned, [place] [facility] NOTICE OF PRIVACY PRACTICES 2020-12-21 22:08:54 Doctor Unassigned, [place] [facility] Encounters Start Date/Time End Date/Time Encounter Type Admission Type Attending [facility] Care Department Encounter ID Source 2020-12-09 11:19:46 Emergency [facility] [id number] [facility] 2022-09-20 13:30:00 2022-09-20 13:30:00 Outpatient STACY MEMBRENO [id number] [facility] 2022-08-18 12:57:00 2022-08-18 13:55:00 Emergency Anisha Abreuala G [facility] [id number] [id number] [id number] [facility] 2022-08-18 12:57:00 2022-08-18 13:55:00 Emergency X GABINO ABREU [facility] ERT [id number] [facility] 2022-07-18 16:03:00 2022-07-18 16:27:00 Emergency X CHARISSA ARMENDARIZ [facility] ERT [id number] [facility] 2022-07-18 16:03:00 2022-07-18 16:27:00 Emergency InduSyl mackise [facility] [id number] [id number] 4.2.7.2.686 [id number] [facility] 2020-12-21 16:25:00 2020-12-21 17:46:00 Emergency X JONY SNELL [facility] ERT [id number] [facility] 2020-12-21 16:25:00 2020-12-21 17:46:00 Emergency Jony Snell R [facility] [id number] [id number] [id number] [id number] [facility] 2020-12-21 00:00:00 2020-12-21 00:00:00 Orders Only Doctor Unassigned, [place] [facility] [id number] [id number] 4.2.7.2.686 [id number] [facility] 2019-08-22 09:00:00 2019-08-22 09:00:00 Outpatient R CAITNILSAJOSE [facility] [id number] [facility] 2019-08-05 13:40:00 2019-08-05 13:40:00 Outpatient R CHRIS MCFARLANE [facility] [id number] [facility] 2019-04-09 20:17:10 2019-04-09 22:40:00 Emergency Ramon Lizandro Gabby [facility] [id number] [id number] [id number] [id number] Results Test Description Test Time Test Comments Results Result Co mments Source [facility]- US TRANSVAGINAL [id number] 17:37:00 Patient Name: GM BRAND Unit No: [id number] EXAMS: CPT CODE: [id number] US TRANSVAGINAL W/PELVIS 77911 EXAMINATION: Pelvic ultrasound 12/08/2018. CLINICAL HISTORY: Vaginal [...] No sonographic abnormalities in the pelvis. at 1733 Reported and signed by: MD William CC: Neto Hylton MD Technologist: Barbie Soler [facility] Probe: [id number] TrnscrbdD/ (8436) t.SDR.[facility] Orig Print D/T: S: 12/08/2018 (1738) [facility] Radiology Department PHYS: BELIA. Neto Hylton MD [address] : 1995 AGE: 23 SEX: F [place] [address] LOC: NickERS PHONE #: [phone] EXAM DATE: 12/08/2018 STATUS: REG ER FAX #: [phone] RAD NO: Page 1 Signed Report Patient Name: GM BRAND Unit No: [id number] EXAMS: CPT CODE: [id number] US TRANSVAGINAL W/PELVIS 51072 (Continued) [facility] NAME: SHABANA BRANDREENA Mcguire Radiology Department PHYS: Neto Hutton MD [address] : 1995 AGE: 23 SEX: F [place] [address] LOC: Kaushik.ERS PHONE #: [phone] EXAM DATE: 12/08/2018 STATUS: REG ER FAX #: [phone] RAD NO: Page 2 Signed Report- US PELVIS [id number] 17:37:00Patient Name: GM BRAND Unit No: [id number] EXAMS: CPT CODE: [id number] US PELVIS COMPLETE 67007 EXAMINATION: Pelvic ultrasound 12/08/2018. CLINICAL HISTORY: Vaginal [...] are within normal limits in size and sonographicappearance. The right ovary measures 32 x 18 [...] Barbie Soler RDMS Probe: Trnscrbd D/ (1737) tRON Orig Print D/T: S: 12/08/2018 (1741) [facility] NAME: GM BRAND Radiology Department PHYS: Neto Hutton MD [address] : 1995 AGE: 23SEX: F [place], [place] [address] LOC: F.ERS PHONE #: [phone] EXAM DATE: 12/08/2018 STATUS: REG ER FAX #: [phone] RAD NO: Page 1 Signed Report Patient Name: GM BRAND Unit No: [id number] EXAMS: CPT CODE: [id number] US PELVIS COMPLETE 20590 (Continued) [facility] NAME: SHABANA BRANDREENA Shayla Radiology Department PHYS: Neto Hutton MD [address] : 1995 AGE: 23 SEX: F [place], [place] [address] LOC: ANGELITA PHONE #: [phone] EXAM DATE: 12/08/2018 STATUS: NICK ANDINO FAX #: [phone] RAD NO: Page 2 Signed Rep ortUA RFLX MICR CULT IF [id number] 16:26:00* Test Item Value Reference Range Interpretation Comme [...] UA LEUKOCYTE ESTERASE DIPSTICK (test code = LEUU) 2+ NEG A UA WBC (test code = WBCU) TOO NUMEROUS T O CNT #/hpf NONE SEEN A UA RBC (test code = RBCU) 11-15 #/hpf NONE SEEN A UA EPITHELIAL CELLS (test code = EPIU) FEW #/HPF RARE-FEW UA BACTERIA (test code = BACU) FEW /HPF RARE-FEW UA MUCUS (test code = MUCU) 4+ NONE SEEN Indication for culture: Dysuria/FrequencyUR HCG [id number] 16:26:00* Test Item Value Reference Range Interpretation Comme nts UR HCG QUAL (test code = HCGQLU) NEGATIVE 1. Very dilute u rine specimens, as indicated by a lowspecific gravity, may not contain dental sales representative levels ofhCG. 2. False negative results may occur when the levels of hCGare below the sensitivity level of the test. If is still suspected, a first morningurine specimen should be collected 48 hours later andtested. Indication for culture: Dysuria/FrequencyUA RFLX MICR CULT IF INDICATED 2018-12-08 16:23:00* Test Item Value Reference Range Interpretation Comme nts UA COLOR (test code = COLU) YELLOW UA APPEARANCE (test code = APPU) CLEAR UA GLUCOSE DIPSTICK (test code = DGLUU) NEGATIV E UA BILIRUBIN DIPSTICK (test code = BILU) NEGATIVE UA KETONE DIPSTICK (test code = KETU) NEGATIVE UA SPECIFIC GRAVITY (test code = SGU) 1.001-1.0 35 UA BLOOD DIPSTICK (test code = ADRIANA) NEGATIVE UA PH DIPSTICK (test code = CARL) 5-9 UA PROTEIN DIPSTICK (test code = PROU) NEGATIVE UA UROBILINIOGEN DIPSTICK (t est code = URO) mg/dL NEG UA NITRITE DIPSTICK (test code = LUNA) NEGATIVE UA LEUKOCYTE ESTERASE DIPSTI CK (test code = LEUU) NEG UA WBC (test code = WBCU) #/hpf NONE SEEN UA EPITHELIAL CELLS (test code = EPIU) #/HPF RARE-FEW Indication for culture: Dysuria/FrequencyUR HCG [id number] 16:23:00* Test Item Value Reference Range Interpretation Comme nts UR HCG QUAL (test code = HCGQLU) NEGATIVE 1. Very dilute u rine specimens, as indicated by a lowspecific gravity, may not contain dental sales representative levels ofhCG. 2. False negative results may occur when the levels of hCGare below the sensitivity level of the test. If is still suspected, a first morningurine specimen should be collected 48 hours later andtested. Indication for culture: Dysuria/FrequencyCBC W/AUTO [id number] 16:20:00* Test Item Value Reference Range Interpretation Comme nts WHITE BLOOD CELL (test code = WBC) [...] pg 27-35 N MEAN CELL HGB CONCETRATION ( test code = MCHC) 32.6 gm/dL 32.2-34.1 N RED CELL DISTRIBUTION WIDTH (test code = RDW) 13.3 % 12.4-16.5 N PLATELET COUNT (test code = PLT) 305 K/mm3 133-385 N IMMATURE PLATELET FRACTION ( test code = IPF) 0.0 % 0.0-10.8 N MEAN PLATELET VOLUME (test c ode = MPV) 10.4 fl 9.1-12.7 N NEUTROPHIL % (test code = NT%) 65.2 [...] = BA#) 0.1 K/mm3 RBC MORPHOLOGY REQUIRED (nivia t code = RBCM) NORMAL NORMAL PLATELET MORPHOLOGY REQUIRED (test code = PLTMR) NORMAL NORMAL Notes Date/Time Note Provider Source 2018-12-08 15:59:00 [facility] EMERGENCY PROVIDER REPORT REPORT#:[id number] REPORT STATUS: Signed DATE:12/08/18 TIME: 155 PATIENT: GM BRAND UNIT #: [id number] ROOM/BED: AGE: 23 SEX: F PCP PHYS: Aaron Ambrocio MD SERVICE AUTHOR: Neto Hylton MD * ALL edits or amendments must be made on the electronic/computer document * HPI- Female General Confirmed Patient Yes Initial Greet Date/Time 12/08/18 1541 Presentation Chief Complaint vag spotting Hx Obtained From Patient )( Sudden in Onset? Yes Onset Occurred Yesterday Symptom Duration Since onset Progression since Onset Intermittent Caused by No trauma by history Severity: Current No pain currently Associated with Denies: Abdominal pain, Abrasion, Anorexia, Chills, Constipation, Fever, Hematemesis, Laceration, Nausea, Rash, UTI symptoms, Vomiting. Associated Other Pt denies other symptoms Exacerbated by Nothing Relieved by Nothing Context Related History Denies: Abdominal surgery, Adhesions intra-abdominal, Cancer, Diabetes mellitus, Endometriosis, Ovarian torsion, Pelvic inflam disease, Polycystic ovary disease, Pyelonephritis, Single kidney, Tubo-ovarian abscess, Tubo-ovarian cyst, Ureterolithiasis, Urinary tract infection, Urolithiasis, Vesicoureteral reflux. Immunization Status General All up to date Recent Healthcare No recent doctor visit, No recent hospitalization Similar Sx Previous No Risk- Female Risk Stratification Ectopic Risk factors reviewed Review of Systems ROS Statements All systems rev neg except as marked. Free Text ROS Notes Free Text ROS Notes Constitutional: No Weight Change, No Fever, No Chills, No Night Sweats, No Fatigue, No Malaise ENT/Mouth: No Hearing Changes, No Ear Pain, No Nasal Congestion, No Sinus Pain, No Hoarseness, No sore throat, No Rhinorrhea, No Swallowing Difficulty Eyes: No Eye Pain, No Swelling, No Redness, No Foreign Body, No Discharge, No Vision Changes Cardiovascular: No Chest Pain, No SOB, No PND, No Dyspnea on Exertion, No Orthopnea, No Claudication, No Edema, No Palpitations Respiratory: No Cough, No Sputum, No Wheezing, No Smoke Exposure, No Dyspnea Gastrointestinal: No Nausea, No Vomiting, No Diarrhea, No Constipation, No Pain , No Heartburn Genitourinary: + VB, No Dysmenorrhea, No DUB, No Dyspareunia, No Dysuria, No Urinary Frequency, No Hematuria, No Urinary Incontinence, No Urgency, No Flank Pain, No Urinary Flow Changes, No Hesitancy Musculoskeletal: No Arthralgias, No Myalgias, No Joint Swelling, No Joint Stiffness, No Back Pain, No Neck Pain, No Injury History Skin: No Skin Lesions, No Pruritis, No Hair Changes, No Breast/Skin Changes, No Nipple Discharge Neuro: No Weakness, No Numbness, No Paresthesias, No Loss of Consciousness, No Syncope, No Dizziness, No Headache, No Coordination Changes, No Recent Falls Psych: No Anxiety/Panic, No Depression, No Insomnia, No Personality Changes, No Delusions, No SI/HI/AH/VH, No Social Issues, No Memory Changes, No Violence/ Abuse Hx., No Eating Concerns Heme/Lymph: No Bruising, No Bleeding, No Transfusions History, No Lymphadenopathy Endocrine: No Polyuria, No Polydipsia, No Temperature Intolerance Past Medical History - Adult Stated Complaint VAGINAL BLEEDING Allergies Coded Allergies: No Known Allergies (12/08/18) Home Medications Reported Medications No Known Home Medications Discontinued Reported Medications DICYCLOMINE (BENTYL) 20 MG PO QID CIPROFLOXACIN (CIPRO) 500 MG PO Q12H ONDANSETRON (ZOFRAN) 4 MG PO BID traMADol (ULTRAM) 50 MG PO Q8H PRN PRN PAIN Review of Nursing Notes Rev avail, and agree Past Surgical History: Reports: . Additional Surgical History back surgeries Smoking status for patients 13 years old or older: Never Smoker Physical Exam Vital Signs Vital Signs First Documented: Result Date Time Pulse Ox 99 12/08 1548 B/P 125/83 12/08 1548 B/P Mean 97 12/08 1548 O2 Delivery Room air 12/08 1548 Temp 36.9 12/08 1548 Pulse 84 12/08 1548 Resp 18 12/08 1548 Last Documented: Result Date Time Pulse Ox 99 12/08 1548 B/P 125/83 12/08 1548 B/P Mean 97 12/08 1548 O2 Delivery Room air 12/08 1548 Temp 36.9 12/08 1548 Pulse 84 12/08 1548 Resp 18 12/08 1548 Review of Vital Signs Reviewed Focused PE General/Const General/Const Awake, Alert, Well appearing Resp/Chest Respiratory/Chest Breath sounds NL, Breath sounds = bilat, No respiratory distress, No rales, No rhonchi, No wheezing Cardiovascular Cardiovascular Heart rate NL, Regular rhythm, Heart sounds NL, Peripheral circulation NL Abdomen/GI Abdomen/GI Soft, Non-tender, No guarding, No rebound MS Back Back Inspection NL, Non-tender, No CVA tenderness Skin Skin Color NL, No rash, Warm, Dry, Turgor NL Genitourinary General Exam deferred, Patient refused exam Interpretation Diagnostics Lab Results Interpretation Results Laboratory Tests 12/08/18 1602: [Embedded Image Not Available] Laboratory Tests: 12/08 1602 Hematology WBC (6.6 - 12.1 K/mm3) 11.5 RBC (3.45 - 5.01 M/mm3) 4.48 Hgb (10.7 - 13.9 g/dL) 13.4 Hct (32.1 - 42.1 %) 41.1 MCV (84.1 - 94.8 fL) 92 MCH (27 - 35 pg) 29.9 MCHC (32.2 - 34.1 gm/dL) 32.6 RDW (12.4 - 16.5 %) 13.3 Plt Count (133 - 385 K/mm3) 305 MPV (9.1 - 12.7 fl) 10.4 Neut % (Auto) (56.5 - 79.4 %) 65.2 Lymph % (Auto) (14.3 - 34.3 %) 21.6 [place] % (Auto) (5.1 - 10.4 %) 6.9 Eos % (Auto) (0.1 - 3.0 %) 5.2 H Baso % (Auto) (0.1 - 1.0 %) 0.8 Neut # (Auto) (K/mm3) 7.5 Lymph # (Auto) (K/mm3) 2.5 [place] # (Auto) (K/mm3) 0.8 Eos # (Auto) (K/mm3) 0.60 Baso # (Auto) (K/mm3) 0.1 Immature Plt Fraction (0.0 - 10.8 %) 0.0 Urines Urine Color (YELLOW) YELLOW Urine Appearance (CLEAR) Slightly-Cloudy Urine pH (5 - 9) 7.0 Ur Specific [place] (1.001 - 1.035) 1.031 Urine Protein (NEG) 2+ H Urine Glucose (UA) (NEG) NEGATIVE Urine Ketones (NEG) NEGATIVE Urine Blood (NEG) 3+ H Urine Nitrite (NEG) NEG Urine Bilirubin (NEG) NEGATIVE Urine Urobilinogen (NEG mg/dL) 4.0 H Ur Leukocyte Esterase (NEG) 2+ H Urine RBC (NONE SEEN #/hpf) 11-15 H Urine WBC (NONE SEEN #/hpf) TOO NUMEROUS TO CNT H Ur Epithelial Cells (RARE - FEW #/HPF) FEW Urine Bacteria (RARE - FEW /HPF) FEW Urine Mucus (NONE SEEN) 4+ Urine HCG, Qual NEGATIVE Microbiology: Date/Time Procedure - Status Source Growth 10/27 1626 Urine Culture - RECD URINE Recent Impressions: ULTRASOUND - US TRANSVAGINAL W/PELVIS 12/08 163 Report Impression - Status: SIGNED Entered: 12/08/2018 174 IMPRESSION: 1. IUD in place in appropriate position. 2. No sonographic abnormalities in the pelvis. Impression By: Collins Golden MD ULTRASOUND - US PELVIS COMPLETE 12/08 1629 Report Impression - Status: SIGNED Entered: 12/08/2018 174 IMPRESSION: 1. IUD in place in appropriate position. 2. No sonographic abnormalities in the pelvis. Impression By: Collins Golden MD Re-Evaluation MDM Free Text MDM Notes Free Text MDM Notes labs and imaging wnl, advised to f/u w/ pcp for further management. return precautions given UA + for UTI US normal, IUD in place Re-Evaluation/Progress Tissue Perfusion Reassessment Patient tissue perfusion reassessment completed. Patient Discharge Departure Vital Signs/Condition Vital Signs First Documented: Result Date Time Pulse Ox 99 12/08 1548 B/P 125/83 12/08 1548 B/P Mean 97 12/08 1548 O2 Delivery Room air 12/08 154 Temp 36.9 12/08 1548 Pulse 84 12/08 1548 Resp 18 12/08 1548 Last Documented: Result Date Time Pulse Ox 99 12/08 1548 B/P 125/83 12/08 1548 B/P Mean 97 12/08 1548 O2 Delivery Room air 12/08 154 Temp 36.9 12/08 1548 Pulse 84 12/08 1548 Resp 18 12/08 1548 All vital signs available at the time of this entry have been reviewed. Clinical Impression Clinical Impression Primary Impression: DUB (dysfunctional uterine bleeding) Secondary Impressions: UTI (urinary tract infection) Disposition Decision Discharge )( Discharged to Home Yes )( Time 1742 )( Date 12/08/18 Discharge/Care Plan Counseled Regarding Diagnosis, Lab results, Imaging studies, Prescriptions, Need for follow-up, When to return to ED Prescriptions keflex Prescriptions Reviewed Risks, Benefits, Alternative treatment Discharge Note I have spoken with the patient and/or caregivers. I have explained the patient's condition, diagnoses and treatment plan based on the information available to me at this time. I have answered the patient's and/or caregiver's questions and addressed any concerns. The patient and/or caregivers have as good an understanding of the patient's diagnosis, condition and treatment plan as can be expected at this point. The vital signs have been stable. The patient's condition is stable and appropriate for discharge from the emergency department. The patient will pursue further outpatient evaluation with the primary care physician or other designated or consulting physician as outlined in the discharge instructions. The patient and/or caregivers are agreeable to this plan of care and follow-up instructions have been explained in detail. The patient and/or caregivers have received these instructions in written format and have expressed an understanding of the discharge instructions. The patient and/or caregivers are aware that any significant change in condition or worsening of symptoms should prompt an immediate return to this or the closest emergency department or a call to 911. Quality Measures BP F/U for HTN Referred for BP f/u < 4wk Smoking Cessation Screened, non user at [address]49 [facility] #[id number] END OF REPORT [facility]
[2023-09-21] MEDS ORDERED: DIPHENHYDRAMINE 50 MG/ML VIAL ONE (11:30)
[2023-09-21] MEDS ORDERED: METHYLPREDNISOLONE 125 MG INJ ONE (11:30)
[2023-09-21] MEDS ORDERED: FAMOTIDINE 20 MG/2 ML VIAL IV ONE (11:30)
[2023-09-21] MEDS ORDERED: NA CHLORIDE 0.9% 50 ML ONE (11:31)
--- NOTE | 2023-09-21 12:56 | ER ---
Nurse's Notes [facility] Name: Audrey Fairchild Age: 28 yrs Sex: Female : 1995 Arrival Date: 09/21/2023 Time: 11:21 Bed 4 Private MD: Diagnosis: Allergic reaction Presentation: 09/20 11:39 Chief complaint: Patient states: Took naproxen and then ate leftover rice. Started to ll1 have itching to upper body and eyes started to swell within the past two hours. Coronavirus screen: Client denies travel out of the [place] in the last 14 days. At this time, the client does not indicate any symptoms associated with coronavirus-19. Ebola Screen: Patient denies travel to an Ebola-affected area in the 21 days before illness onset. Onset: The symptoms/episode began/occurred suddenly. Anaphylaxis evaluation, no signs or symptoms of anaphylaxis were noted. Initial Sepsis Screen: Does the patient meet any 2 criteria? No. Patient's initial sepsis screen is negative. Does the patient have a suspected source of infection? No. Patient's initial sepsis screen is negative. Risk Assessment: Do you want to hurt yourself or someone else? Patient reports no desire to harm self or others. Onset of symptoms was September 21, 2023. 11:39 Method Of Arrival: Ambulatory ll1 11:39 Acuity: CAR 3 ll1 Triage Assessment: 11:20 General: Appears uncomfortable, Behavior is calm, cooperative, appropriate for age. ll1 Pain: Denies pain. EENT: Reports swelling to eyes. Respiratory: Airway is patent Trachea midline Respiratory effort is even, unlabored, Respiratory pattern is regular, symmetrical, Breath sounds are clear bilaterally. Derm: Reports itching to upper body and scalp. 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 - Infectious Disease History:: Denies. - Social history:: Smoking status: Patient denies any tobacco usage or history of. - Family history:: not pertinent. Screenin:48 [facility] ED Fall Risk Assessment (Adult) History of falling in the last 3 months, ll1 including since admission No falls in past 3 months (0 pts) Confusion or Disorientation No (0 pts) Intoxicated or Sedated No (0 pts) Impaired Gait No (0 pts) Mobility Assist Device Used No (0 pt) Altered Elimination No (0 pt) Score/Fall Risk Level 0 - 2 = Low Risk Maintained a safe environment, Hourly rounding (assess needs \T\ fall precautionary measures) done. Abuse screen: Denies threats or abuse. Nutritional screening: No deficits noted. Tuberculosis screening: No symptoms or risk factors identified. Assessment: 11:44 Reassessment: No changes from previously documented assessment. Patient and/or family ll1 updated on plan of care and expected duration. Pain level reassessed. Patient is alert, oriented x 3, equal unlabored respirations, skin warm/dry/pink. 11:55 Reassessment: No changes from previously documented assessment. Patient and/or family ll1 updated on plan of care and expected duration. Pain level reassessed. Patient is alert, oriented x 3, equal unlabored respirations, skin warm/dry/pink. 13:03 Reassessment: No changes from previously documented assessment. Patient and/or family ll1 updated on plan of care and expected duration. Pain level reassessed. Patient is alert, oriented x 3, equal unlabored respirations, skin warm/dry/pink. Vital Signs: 11:28 BP 133 / 86; Pulse 70; Resp 16; Temp 97.2; Pulse Ox 99% ; Pain 0/10; ll1 13:03 BP 111 / 66; Pulse 68; Resp 15; Pulse Ox 100% on R/A; Pain 0/10; ll1 11:28 Pain Scale: Adult ll1 13:03 Pain Scale: Adult ll1 ED Course: 11:22 Patient arrived in ED. ra3 11:22 Arm band placed on Patient placed in an exam room, on a stretcher. ll1 11:27 Zay Blount MD is Attending Physician. rt 11:28 Grace Vega, KAYLYNN is Primary Nurse. ll1 11:28 Inserted saline lock: 20 gauge in right antecubital area, using aseptic technique. ll1 Blood collected. Flushed with 10 mL NS. 11:40 Triage completed. ll1 11:49 Patient has correct armband on for positive identification. Bed in low position. ll1 Provided Education on: ER procedures and process. Client placed on continuous cardiac and pulse oximetry monitoring. NIBP monitoring applied. 11:55 Warm blanket given. Pillow given. ll1 13:04 No provider procedures requiring assistance completed. IV discontinued, intact, ll1 bleeding controlled, No redness/swelling at site. Pressure dressing applied. Administered Medications: 11:38 Drug: diphenhydrAMINE IVP 50 mg IVP once Route: IVP; Site: right antecubital; ll1 13:04 Follow up: Response: No adverse reaction ll1 11:38 Drug: Famotidine IVP 20 mg IVP once; dilute with 10 mL 0.9% NaCl; give over 2 minutes ll1 Route: IVP; Site: right antecubital; 13:04 Follow up: Response: No adverse reaction ll1 11:38 Drug: MethylPrednisoLONE IVP 125 mg IVP once Route: IVP; Site: right antecubital; ll1 13:05 Follow up: Response: No adverse reaction 1 Medication: 11:49 VIS not applicable for this client. ll1 Outcome: 12:55 Discharge ordered by . rt 13:04 Discharged to home ambulatory, ll1 13:04 Condition: stable 13:04 Discharge instructions given to patient, Instructed on discharge instructions, follow up and referral plans. medication usage, Demonstrated understanding of instructions, follow-up care, medications, Prescriptions given X 2, 13:05 Patient left the ED. 1 Signatures: Grace Vega RN RN ll1 Zay Blount MD MD rt Jessica Carlton ra3 Corrections: (The following items were deleted from the chart) 11:39 11:28 BP 133 / 86; Pulse 70bpm; Resp 16bpm; Pulse Ox 99%; Pain 0/10, Adult; ll1 ll1
--- NOTE | 2023-09-21 12:56 | EDPHYS ---
Physician Documentation [facility] Name: Audrey Fairchild Age: 28 yrs Sex: Female : 1995 Arrival Date: 09/21/2023 Time: 11:21 Bed 4 Private MD: ED Physician Zay Blount HPI: 09/20 11:35 This 28 yrs old Black Female presents to ER via Unassigned with complaints of Allergic rt Reaction - swollen eyes. 11:35 Patient presents with reported allergic reaction. Patient reports periorbital swelling rt to both eyes, worse on the right compared to the left. Reports mild pain to the area. Denies difficulty breathing, tongue, lip swelling. Likely inciting factor was eating possibly cross-contamination of rice with taking naproxen about 2 hours ago. Denies other acute complaints at this time, symptoms are moderate in severity, no other aggravating or alleviating factors. 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 - Infectious Disease History:: Denies. - Social history:: Smoking status: Patient denies any tobacco usage or history of. - Family history:: not pertinent. ROS: 11:35 Constitutional: Negative for fever, chills, and weight loss, ENT: Negative for injury, rt pain, and discharge, Cardiovascular: Negative for chest pain, palpitations, and edema, Respiratory: Negative for shortness of breath, cough, wheezing, and pleuritic chest pain, Abdomen/GI: Negative for abdominal pain, nausea, vomiting, diarrhea, and constipation, Skin: Negative for injury, rash, and discoloration, Neuro: Negative for headache, weakness, numbness, tingling, and seizure, 11:35 Eyes: Positive for Periorbital swelling, Exam: 11:35 Constitutional: This is a well developed, well nourished patient who is awake, alert, rt and in no acute distress. Chest/axilla: Normal chest wall appearance and motion. Nontender with no deformity. No lesions are appreciated. Cardiovascular: Regular rate and rhythm with a normal S1 and S2. No gallops, murmurs, or rubs. Normal PMI, no JVD. No pulse deficits. Respiratory: Lungs have equal breath sounds bilaterally, clear to auscultation and percussion. No rales, rhonchi or wheezes noted. No increased work of breathing, no retractions or nasal flaring. Abdomen/GI: Soft, non-tender, with normal bowel sounds. No distension or tympany. No guarding or rebound. No evidence of tenderness throughout. Skin: Warm, dry with normal turgor. Normal color with no rashes, no lesions, and no evidence of cellulitis. MS/ Extremity: Pulses equal, no cyanosis. Neurovascular intact. Full, normal range of motion. 11:35 Head/face: Periorbital swelling noted bilaterally, no conjunctival injection, extraocular muscles are intact. 11:35 ENT: No edema to the oropharynx. Vital Signs: 11:28 BP 133 / 86; Pulse 70; Resp 16; Temp 97.2; Pulse Ox 99% ; Pain 0/10; ll1 13:03 BP 111 / 66; Pulse 68; Resp 15; Pulse Ox 100% on R/A; Pain 0/10; ll1 11:28 Pain Scale: Adult ll1 13:03 Pain Scale: Adult ll1 MDM: 11:27 Patient medically screened. rt 13:21 Differential diagnosis: Allergic reaction, EGD anaphylaxis. Data reviewed: vital signs, rt nurses notes. Consideration of Admission/Observation Escalation of care including admission/observation considered. Symptoms not consistent with angioedema, she is not on an BLOSSOM inhibitor. No signs of anaphylaxis, no significant worsening of her symptoms throughout her stay in the ED, stable for outpatient care, strict return precautions discussed.. I considered the following discharge prescriptions or medication management in the emergency department Medications were administered in the Emergency Department. See MAR. Counseling: I had a detailed discussion with the patient and/or guardian regarding the historical points, exam findings, and any diagnostic results supporting the discharge/admit diagnosis, the need for outpatient follow up, to return to the emergency department if symptoms worsen or persist or if there are any questions or concerns that arise at home. Administered Medications: 11:38 Drug: diphenhydrAMINE IVP 50 mg IVP once Route: IVP; Site: right antecubital; ll1 13:04 Follow up: Response: No adverse reaction ll1 11:38 Drug: Famotidine IVP 20 mg IVP once; dilute with 10 mL 0.9% NaCl; give over 2 minutes ll1 Route: IVP; Site: right antecubital; 13:04 Follow up: Response: No adverse reaction ll1 11:38 Drug: MethylPrednisoLONE IVP 125 mg IVP once Route: IVP; Site: right antecubital; ll1 13:05 Follow up: Response: No adverse reaction ll1 Disposition Summary: 09/21/23 12:55 Discharge Ordered Notes: Location: Home rt Problem: new rt Symptoms: are unchanged rt Condition: Stable rt Diagnosis - Allergic reaction rt Followup: rt - With: Private Physician - When: 2 - 3 days - Reason: Followup: rt - With: Emergency Department - When: As needed - Reason: Worsening of condition Discharge Instructions: - Discharge Summary Sheet rt - Allergies, Adult rt - Allergy Skin Testing rt Forms: - Medication Reconciliation Form rt - Antibiotic Education rt - Prescription Opioid Use rt - Patient Portal Instructions rt - Leadership Thank You Letter rt Prescriptions: - EpiPen 0.3 mg/0.3 mL Injection Auto-Injector - administer 0.3 milliliter INTRAMUSCULAR route once; 1 pen; Refills: 0, Product rt Selection Permitted - Prednisone 20 mg Oral Tablet - take 2 tablets ORAL route once daily for 5 days; 10 tablet; Refills: 0, Product rt Selection Permitted Signatures: Grace Vega RN RN ll1 Zay Blount MD MD rt
[2023-09-21 13:30] VITALS: TEMP 97.2
[2023-09-21 13:31] VITALS: BP 111/66; O2SAT 100
== END 2023-09-21 13:05 | disposition home or self-care (01) ==
LOC: ER 11:21
DX: R22.9 Localized swelling, mass and lump, unspecified (principal)
CPT/HCPCS: 96374; 96375; 99284; J1200; J2919